=== PATIENT | male | born 1955 | race Caucasian/White ===

== ENCOUNTER → 2018-10-26 | Outpatient (CLI) | payer OTHER | LOC: BMCIMAGING 14:50 | PROVIDERS: ATTEND Family Medicine | DX: M25.642 Stiffness of left hand, not elsewhere classified (principal); M79.89 Other specified soft tissue disorders ==

== ENCOUNTER → 2018-12-21 | Outpatient (CLI) | payer OTHER | LOC: BMCIMAGING 07:47 ==